=== PATIENT | male | born 1945 | race Hispanic/Latino ===

== ENCOUNTER 2021-10-15 06:18 | Observation (INO) | payer MEDICARE ==
--- NOTE | 2021-10-15 07:29 | Emergency Department Report ---
HPI - General Chief Complaint: Chest Pain Time Seen by Provider: 10/15/21 06:49 - HPI HPI: 76-year-old male with history of hypertension, DM2, and CAD s/p CABG and 7 stents is brought in by EMS complaining of left-sided chest pain and arm pain since last night. The patient states that around midnight he began to have pressure-like pain in the left side of his chest just over the breast which was very brief and then the pain moved to his left arm. He states that in the past, every time he has needed a stent it has presented exactly like this with left arm pain. That left arm pain lasted hours and he took nitro at 5 AM. While in the ambulance, the patient was given full-strength aspirin. His chest and left arm pain fully resolved while in route to the hospital. At this time he reports no symptoms. He denies any recent or associated fever/chills, headache, vision change, neck pain, back pain, cough, shortness of breath, abdominal pain, n ausea/vomiting, jaw pain, focal weakness, sensory changes, or any other complaints. He is fully vaccinated against COVID-19 and has received a booster. His vmware administrator is Dr. Cadena from [facility]. ED Past Medical Hx - Past Medical History Hx Hypertension: Yes Hx Heart Attack/AMI: Yes (7 STENT, CABG) Hx Diabetes: Yes - Surgical History Past Surgical History?: Yes Additional Surgical History: cABG - Medications Home Medications: Home Medications Medication Instructions Recorded Confirmed Last Taken Type No Known Home Medications [No 10/15/21 10/15/21 Unknown History Reported Home Medications] ED Review of Systems ROS: Stated complaint: CHEST PAIN Other details as noted in HPI Comment: All other systems reviewed and negative Constitutional: denies: chills Eyes: denies: eye pain, vision change ENT: denies: throat pain, congestion Respiratory: denies: cough, shortness of breath Cardiovascular: chest pain. denies: palpitations, edema, syncope Gastrointestinal: denies: abdominal pain, nausea, vomiting Genitourinary: denies: dysuria, frequency Musculoskeletal: denies: back pain, arthralgia Skin: denies: rash, lesions Neurological: denies: headache, weakness, numbness, paresthesias Hematological/Lymphatic: denies: easy bleeding Physical Exam - Physical Exam Vital Signs: Vital Signs 10/15/21 06:36 Temperature 98.4 F Pulse Rate 55 L Blood Pressure 140/90 [Left] Physical Exam: GENERAL: Obese male in no acute distress. HEAD: Normocephalic. No obvious signs of trauma. ENT: Moist mucous membranes. EYES: Extraocular movements are intact. Pupils are equal round and reactive to light bilaterally NECK: Supple. Full ROM is intact. Trachea is midline. LUNGS: Nonlabored breathing. Equal chest rise bilaterally. Clear to auscultation bilaterally. CARDIOVASCULAR: Bradycardic with regular rhythm. No murmurs or rubs. VASCULAR: Cap refill < 2 seconds. 2+ pitting edema of the left lower extremity, 3+ pitting edema of the right lower extremity. ABDOMEN: Abdomen is soft and nondistended. There is no significant tenderness, guarding or rebound. SKIN: Skin is warm and dry NEURO: Patient is awake, alert, and oriented. silver steward II-XII grossly intact. No focal deficits. Normal motor and sensory exam throughout. Normal speech. MUSCULOSKELETAL: No obvious deformities. No significant tenderness. Normal ROM throughout. BACK/SPINE: No midline tenderness or step-offs of the C/T/L spine. No costovertebral angle tenderness. ED Course Vital Signs 10/15/21 06:36 Temperature 98.4 F Pulse Rate 55 L Blood Pressure 140/90 [Left] ED Medical Decision Making - Lab Data Result diagrams: 10/15/21 07:22 10/15/21 07:22 - EKG Data -: EKG Interpreted by Me - EKG Data When compared to previous EKG there are: previous EKG unavailable 10/15/21 07:54 Junctional rhythm with rate of 56. Otherwise normal intervals. No significant ST segment or T wave abnormalities. - Radiology Data Radiology results: report reviewed - Medical Decision Making 76-year-old male with history of diabetes and extensive cardiac history includi ng prior CABG and 7 stent placement presents with left-sided chest and arm pain that started very early this morning and has since resolved. Patient states that this presentation is the same presentation he has experienced in the past every time he has needed a new stent placed. He is currently asymptomatic without chest pain at this time. Nonetheless, EKG shows what appears to be a junctional rhythm with rate in the 50s. No prior EKGs are available for comparison. His blood pressure is within normal limits and vital signs are otherwise stable. Nonetheless, we will perform broad work-up with a full set of labs, chest x-ray, continuous cardiac monitoring with pads in place. We will place a stat consult to cardiology. We will continue to monitor very closely. I spoke with Dr. Kauffman of interventional cardiology at 7:43 regarding the case. He reviewed the EKG and states that as long as the patient's remaining vitals are stable, he recommends treating the same as if junctional rhythm was not present on EKG. At 8 AM I spoke with Cookie, a UNIT COORDINATOR that works with [facility] and the patient's vmware administrator. She was able to review the patient's medical records and conveyed that the patient last had an EKG in April 19, 2021 which at that time showed new onset junctional rhythm. Given that the junctional rhythm seen on EKG today is not new, we will continue to monitor and work-up as per chest pain protocol. Patient's heart score is 7 Labs have resulted and reveal no significant leukocytosis or anemia. Creatinine is within normal range and there are no significant electrolyte abnormalities. Lipase is very mildly elevated at 103. Troponin is negative. BMP is within normal limits. TSH is within normal limits. Chest x-ray shows mild increased density in the left lower lobe of the lung. Given this finding I have ordered CTA of the chest to assess for evidence of pulmonary embolism versus pneumonia versus mass versus other abnormality to explain the patient's presentation On repeat assessment at 9:10 AM, the patient reports that he is just now beginning to experience some increased left-sided chest pain. I have ordered Nitropaste. Patient's chest pain resolved shortly after application of Nitropaste. CTA of the chest reveals no acute abnormalities and no evidence of pulmonary embolism. I discussed with the patient my recommendation for admission given his significant risk factors and concerning nature of his presentation as well as his elevated heart score. He will be admitted for further trending of cardiac enzymes and management as appropriate. He expressed understanding and agreement with this plan of care. I spoke with the hospitalist regarding the case and he has been accepted by Dr. Anaya Critical care attestation.: If time is entered above; I have spent that time in minutes in the direct care of this critically ill patient, excluding procedure time. ED Disposition Clinical Impression: Junctional bradycardia, Unstable angina, History of coronary artery bypass graft Disposition: ADMITTED INPATIENT Is pt being admited?: Yes Instructions: Angina, [id number] Referrals: PRIMARY CARE, [Primary Care Provider] - 3-5 Days HEART Score - HEART Score History: Highly suspicious EKG: Non-specific Age: > 65 Risk factors: > 3 risk factors or hx of atherosclerotic disease Troponin: < normal limit HEART Score: 7
[2021-10-15 07:34] LABS: Basophils # (Auto) 0.1 K/mm3 (0.0-0.1); Basophils % (Auto) 0.8 % (0.0-1.8); Eosinophils # (Auto) 0.2 K/mm3 (0.0-0.4); Eosinophils % (Auto) 2.7 % (0.0-4.3); Hematocrit 40.1 % (35.5-45.6); Lymphocytes # (Auto) 1.4 K/mm3 (1.2-5.4); Lymphocytes % (Auto) 18.7 % (13.4-35.0); Mean Corpuscular HGB Conc 32 % (32-34); Mean Corpuscular Volume 97 fl (84-94); Monocytes # (Auto) 0.5 K/mm3 (0.0-0.8); Monocytes % (Auto) 6.3 % (0.0-7.3); Platelet Count 166 K/mm3 (140-440); Red Blood Count 4.15 M/mm3 (3.65-5.03); Red Cell Distribution Width 14.8 % (13.2-15.2)
--- NOTE | 2021-10-15 07:41 | XRay Report ---
CHEST 1 VIEW 10/15/2021 6:35 AM INDICATION / CLINICAL INFORMATION: CP. COMPARISON: 01/11/2013 FINDINGS: SUPPORT DEVICES: None. HEART / MEDIASTINUM: Cardiomegaly LUNGS / PLEURA: Mild increased density and atelectasis in the left lower lung No pneumothorax. Signer Name: Gigi Serrano MD Signed: 10/15/2021 7:37 AM Workstation Name: [id number]
[2021-10-15 07:44] LABS: INR 0.98 (0.87-1.13)
[2021-10-15 07:58] LABS: Alanine Aminotransferase 22 units/L (7-56); Albumin 3.7 g/dL (3.9-5); BUN/Creatinine Ratio 17; Blood Urea Nitrogen 17 mg/dL (9-20); Calcium 8.4 mg/dL (8.4-10.2); Hemolysis Index 6
[2021-10-15] MEDS ORDERED: NITROGLYCERIN 2% OINT 1 GM TP ONE (09:10)
--- NOTE | 2021-10-15 10:12 | Cat Scan Report ---
CTA CHEST WITH CONTRAST INDICATION : Left lower lobe opacity, assess for PE OMNI 350 100ML. TECHNIQUE: Axial imaging performed through the chest, with contrast bolus timing set to maximize opa cification of the pulmonary arteries. Sagittal and coronal reformatted images. 3-plane MIP reformatte d images were obtained. All CT scans at this location are performed using CT dose reduction for ALAR A by means of automated exposure control. Omnipaque 350 100 mL of intravenous contrast administered. COMPARISON: AP chest 10/15/2021 FINDINGS: Bolus: Contrast bolus timing is adequate. PTE: No filling defect is present to suggest PTE. Mediastinum: Heart size is within normal limits with moderate three-vessel coronary artery calcifica tions. The thoracic aorta is unremarkable. No pathologic mediastinal adenopathy. Lungs: The lungs are clear with no evidence for acute infiltrate or interstitial disease. 8 mm subpl eural nodule is identified in the lateral left lower lobe. A 7 mm subpleural nodule is identified in the lateral right middle lobe. Overall these have a benign appearance. No aggressive pulmonary mass. There is no evidence for pleural effusion or pneumothorax. Mild eventration of the anterior left jacob diaphragm is noted. Bones: Degenerative changes in the spine with nothing acute. Upper abdomen: Limited images of the upper abdomen demonstrate a large right renal cyst measuring up to 10 cm. Multiple gallstones are also identified with no evidence for acute cholecystitis. IMPRESSION: No evidence for pulmonary embolus. The lungs are clear. There is eventration of the left anterior hemidiaphragm which could represent a left lower lobe opacity on recent AP chest. Bilateral pulmonary nodules as described which overall have a benign appearance. Current guidelines r ecommend follow-up in 6-12 months. Signer Name: Juno Jacobs Jr, MD Signed: 10/15/2021 10:08 AM Workstation Name: [id number]
--- NOTE | 2021-10-15 10:27 | Electrocardiograph Report ---
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
--- NOTE | 2021-10-15 17:11 | History and Physical Report ---
History of Present Illness Date of examination: 10/15/21 Date of admission: 10/15/2021 Chief complaint: Left chest pain and shoulder pain for 1 day History of present illness: 76-year-old male with history of hypertension, type 2 diabetes, coronary artery disease, s/p CABG, 7 stents comes in for left-sided chest pain and left shoulder pain since last night. Patient states that around midnight was having left-sided chest pain and shoulder pain. 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 Once he gets her out of bed she can walk slowly with the help of her walker to the restroom. His is near total care which process loss of some physical stress on both his shoulders and upper body. No shortness of breath. No diaphoresis. No orthopnea. No palpitations. - Past Medical History Hx Hypertension: Yes Hx Heart Attack/AMI: Yes (7 STENT, CABG) Hx Diabetes: Yes - Surgical History Past Surgical History?: Yes Additional Surgical History: cABG - Medications Home Medications: Home Medications Medication Instructions Recorded Confirmed Last Taken Type No Known Home Medications [No 10/15/21 10/15/21 Unknown History Reported Home Medications] Review of Systems ROS: Stated complaint: CHEST PAIN Other details as noted in HPI Comment: All other systems reviewed and negative Constitutional: denies: chills Eyes: denies: eye pain, vision change ENT: denies: throat pain, congestion Respiratory: denies: cough, shortness of breath Cardiovascular: chest pain. denies: palpitations, edema, syncope Gastrointestinal: denies: abdominal pain, nausea, vomiting Genitourinary: denies: dysuria, frequency Musculoskeletal: denies: back pain, arthralgia Skin: denies: rash, lesions Neurological: denies: headache, weakness, numbness, paresthesias Hematological/Lymphatic: denies: easy bleeding Medications and Allergies Allergies Allergy/AdvReac Type Severity Reaction Status Date / Time No Known Allergies Allergy Unverified 10/15/21 09:10 Home Medications Medication Instructions Recorded Confirmed Last Taken Type No Known Home Medications [No 10/15/21 10/15/21 Unknown History Reported Home Medications] Exam - Constitutional Vitals: Temp Pulse Resp BP Pulse Ox 98.4 F 63 16 166/86 99 10/15/21 06:36 10/15/21 15:00 10/15/21 15:00 10/15/21 15:00 10/15/21 15:00 General appearance: Present: no acute distress, well-nourished - EENT Eyes: Present: PERRL ENT: hearing intact, clear oral mucosa - Neck Neck: Present: supple, normal ROM - Respiratory Respiratory effort: normal Respiratory: bilateral: CTA - Cardiovascular Heart rate: 78 Rhythm: regular Heart Sounds: Present: S1 & S2. Absent: rub, click Details: Chest wall tenderness present and left shoulder tenderness present. - Extremities Extremities: pulses symmetrical, No edema Peripheral Pulses: within normal limits - Abdominal General gastrointestinal: Present: soft, non-tender, non-distended, normal bowel sounds Male genitourinary: Present: normal - Integumentary Integumentary: Present: clear, warm, dry - Musculoskeletal Musculoskeletal: gait normal, strength equal bilaterally - Psychiatric Psychiatric: appropriate mood/affect, intact judgment & insight - Neurologic Neurologic: CNII-XII intact, moves all extremities - Allied Health Allied health notes reviewed: nursing, case management HEART Score - HEART Score EKG: Non-specific Age: > 65 Risk factors: > 3 risk factors or hx of atherosclerotic disease Troponin: Troponin T < 0.010 ng/mL (0.00-0.029) 10/15/21 13:42 Troponin: < normal limit - Critical Actions Critical Actions: 4-6 pts:12-16.6% risk of adverse cardiac event. Should be admitted Results - Labs CBC & Chem 7: 10/16/21 05:47 10/16/21 05:47 Labs: Laboratory Last Values WBC 7.5 K/mm3 (4.5-11.0) 10/15/21 07:22 RBC 4.15 M/mm3 (3.65-5.03) 10/15/21 07:22 Hgb 13.0 gm/dl (11.8-15.2) 10/15/21 07:22 Hct 40.1 % (35.5-45.6) 10/15/21 07:22 MCV 97 fl (84-94) H 10/15/21 07:22 MCH 31 pg (28-32) 10/15/21 07:22 MCHC 32 % (32-34) 10/15/21 07: RDW 14.8 % (13.2-15.2) 10/15/21 07:22 Plt Count 166 K/mm3 (140-440) 10/15/21 07:22 Lymph % (Auto) 18.7 % (13.4-35.0) 10/15/21 07:22 Mora % (Auto) 6.3 % (0.0-7.3) 10/15/21 07: Eos % (Auto) 2.7 % (0.0-4.3) 10/15/21 07: Baso % (Auto) 0.8 % (0.0-1.8) 10/15/21 07: Lymph # (Auto) 1.4 K/mm3 (1.2-5.4) 10/15/21 07:22 Mora # (Auto) 0.5 K/mm3 (0.0-0.8) 10/15/21 07: Eos # (Auto) 0.2 K/mm3 (0.0-0.4) 10/15/21 07:22 Baso # (Auto) 0.1 K/mm3 (0.0-0.1) 10/15/21 07: Seg Neutrophils % 71.5 % (40.0-70.0) H 10/15/21 07: Seg Neutrophils # 5.3 K/mm3 (1.8-7.7) 10/15/21 07:22 PT 14.1 Sec. (12.2-14.9) 10/15/21 07: INR 0.98 (0.87-1.13) 10/15/21 07:22 APTT 28.0 Sec. (24.2-36.6) 10/15/21 07:22 Sodium 141 mmol/L (137-145) 10/15/21 07:22 Potassium 4.1 mmol/L (3.6-5.0) 10/15/21 07:22 Chloride 105.9 mmol/L (98-107) 10/15/21 07:22 Carbon Dioxide 22 mmol/L (22-30) 10/15/21 07:22 Anion Gap 17 mmol/L 10/15/21 07:22 BUN 17 mg/dL (9-20) 10/15/21 07:22 Creatinine 1.0 mg/dL (0.8-1.3) 10/15/21 07:22 Estimated GFR > 60 ml/min 10/15/21 07:22 BUN/Creatinine Ratio 17 % 10/15/21 07:22 Glucose 169 mg/dL (75-100) H 10/15/21 07:22 Calcium 8.4 mg/dL (8.4-10.2) 10/15/21 07:22 Magnesium 1.70 mg/dL (1.7-2.3) 10/15/21 07:22 Total Bilirubin 0.40 mg/dL (0.1-1.2) 10/15/21 07:22 AST 19 units/L (5-40) 10/15/21 07:22 ALT 22 units/L (7-56) 10/15/21 07:22 Alkaline Phosphatase 89 units/L (35-129) 10/15/21 07:22 Troponin T < 0.010 ng/mL (0.00-0.029) 10/15/21 13:42 NT-Pro-B Natriuret Pep 218.2 pg/mL (0-900) 10/15/21 07:22 Total Protein 6.5 g/dL (6.3-8.2) 10/15/21 07:22 Albumin 3.7 g/dL (3.9-5) L 10/15/21 07:22 Albumin/Globulin Ratio 1.3 % 10/15/21 07:22 Lipase 103 units/L (13-60) H 10/15/21 07:22 TSH 2.830 mlU/mL (0.270-4.200) 10/15/21 07:23 Short CBC 10/15/21 10/16/21 Range/Units 07:22 05:47 WBC 7.5 7.3 (4.5-11.0) K/mm3 Hgb 13.0 13.2 (11.8-15.2) gm/dl Hct 40.1 39.8 (35.5-45.6) % Plt Count 166 161 (140-440) K/mm3 BMP 10/15/21 10/16/21 07:22 05:47 Sodium 141 142 Potassium 4.1 4.0 Chloride 105.9 106.2 Carbon Dioxide 22 19 L BUN 17 17 Creatinine 1.0 0.9 Glucose 169 H 149 H Calcium 8.4 7.7 L Cardiac Enzymes 10/15/21 10/15/21 10/15/21 Range/Units 07:22 10:22 13:42 Troponin T < 0.010 < 0.010 < 0.010 (0.00-0.029) ng/mL 10/15/21 10/15/21 Range/Units 17:50 22:44 Troponin T < 0.010 0.014 (0.00-0.029) ng/mL Liver Function 10/15/21 10/16/21 Range/Units 07:22 05:47 Total Bilirubin 0.40 0.40 (0.1-1.2) mg/dL AST 19 21 (5-40) units/L ALT 22 21 (7-56) units/L Alkaline Phosphatase 89 84 (35-129) units/L Albumin 3.7 L 3.2 L (3.9-5) g/dL - Imaging and Cardiology EKG: report reviewed (Normal sinus rhythm, no acute ST-T wave changes) Chest x-ray: report reviewed (No acute findings) Imaging and Cardiology: Chest x-ray with mild increased density and atelectasis in the left lower lobe. No pneumothorax. Chest CTA No evidence of pulmonary embolism Lungs are There is a ventilation of the left anterior hemidiaphragm which could represent a left lower lobe opacity on recent AP chest Bilateral pulmonary nodules as described with overall benign. Appearance. Assessment and Plan Advance Directives: Yes (Full code) VTE prophylaxis?: Chemical - Patient Problems (1) ACS (acute coronary syndrome) Current Visit: Yes Status: Acute Plan to address problem: Cardiac ischemia unlikely Patient has extensive coronary artery disease with multiple stents and CABG Patient's chest pain appears to be musculoskeletal because of lifting his on a regular basis Chest wall tenderness present. Serial troponins. 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 There is chest wall tenderness and costochondral tenderness. Patient lives with his and helps her to the restroom and other ADLs. (3) Hypertension Current Visit: Yes Status: Chronic Qualifiers: Hypertension type: primary hypertension Qualified Code(s): I10 - Essential (primary) hypertension Plan to address problem: Continue antihypertensives and adjust medications No reconciliation medications (4) T2DM (type 2 diabetes mellitus) Current Visit: Yes Status: Chronic Qualifiers: Diabetes mellitus detention insulin use: unspecified terminologist insulin use status Plan to address problem: Coverage for now and check hemoglobin A1c. (5) Hypocalcemia Current Visit: Yes Status: Acute Plan to address problem: Supplemented (6) DVT prophylaxis Current Visit: Yes Status: Acute Plan to address problem: On anticoagulation GI prophylaxis (7) Advance care planning Current Visit: Yes Status: Acute Plan to address problem: Disease education conducted, care plan discussed, diagnosis discussed, prognosis discussed. Patient is full code Patient acknowledges understanding and agreement with care plan. +30 minutes. (8) Discharge planning issues Current Visit: Yes Status: Acute Plan to address problem: Patient may be discharged if troponins are negative Stress test as outpatient with [facility]-- consulted
[2021-10-15] MEDS ORDERED: ONDANSETRON 4 MG/2 ML INJ IV PRN (17:30)
[2021-10-15] MEDS ORDERED: oxyCODONE /ACETAMINOPHEN 5-325MG TAB PO PRN (17:30)
[2021-10-15] MEDS ORDERED: ACETAMINOPHEN 325 MG TAB PO PRN (17:30)
[2021-10-15] MEDS ORDERED: SODIUM CHLORIDE 0.9% 1000 ML 1,000 ML IV SCH (17:30)
[2021-10-15] MEDS: HEPARIN 5,000 UNIT/1 ML VIAL SUB-Q SCH (17:51)
[2021-10-16 06:18] LABS: Basophils # (Auto) 0.1 K/mm3 (0.0-0.1); Eosinophils # (Auto) 0.2 K/mm3 (0.0-0.4); Eosinophils % (Auto) 2.3 % (0.0-4.3); Hematocrit 39.8 % (35.5-45.6); Hemoglobin 13.2 gm/dl (11.8-15.2); Lymphocytes # (Auto) 1.4 K/mm3 (1.2-5.4); Lymphocytes % (Auto) 19.5 % (13.4-35.0); Mean Corpuscular HGB Conc 33 % (32-34); Mean Corpuscular Volume 97 fl (84-94); Monocytes # (Auto) 0.5 K/mm3 (0.0-0.8); Monocytes % (Auto) 7.4 % (0.0-7.3); Platelet Count 161 K/mm3 (140-440); Red Blood Count 4.12 M/mm3 (3.65-5.03); Red Cell Distribution Width 14.8 % (13.2-15.2)
[2021-10-16 06:37] LABS: Alanine Aminotransferase 21 units/L (7-56); Albumin 3.2 g/dL (3.9-5); BUN/Creatinine Ratio 19; Blood Urea Nitrogen 17 mg/dL (9-20); Calcium 7.7 mg/dL (8.4-10.2)
[2021-10-16 06:38] LABS: Hemolysis Index 69
[2021-10-16] MEDS ORDERED: MELOXICAM 7.5 MG TAB PO SCH (10:00)
[2021-10-16] MEDS ORDERED: CALCIUM CARB/VIT D3/MINERALS 600 MG/800 UNITS TAB PO SCH (10:00)
[2021-10-16] MEDS: HEPARIN 5,000 UNIT/1 ML VIAL SUB-Q SCH (10:27)
--- NOTE | 2021-10-16 11:26 | Discharge Summary ---
Providers - Providers Date of Admission: 10/15/21 16:27 Date of discharge: 10/16/21 Attending physician: JESSICA CAZARES MD Primary care physician: [facility] Hospitalization Reason for admission: Acute chest pain Condition: Stable Pertinent studies: Reviewed. Procedures: None. Hospital course: The patient is a 76-year-old female with past medical history of hypertension, noninsulin-dependent type 2 diabetes mellitus, coronary artery disease status post CABG and PCI x7, and morbid obesity who presented with left-sided chest pain and left shoulder pain that started approximately 1 night prior to presentation. The patient admits that he had been having the pain for approximately 1 day. 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 His is approximately 200 pounds and short in stature. In the ED the patient was administered aspirin 325 mg and Nitropaste with alleviation of symptoms. Troponins were trended and they were found to be negative x4. The patient does follow with an outpatient desktop support technician. With the patient having negative troponins and his pain likely being secondary to musculoskeletal etiology (constantly lifting his and transporting her), the decision was made to discharge the patient home. The patient will follow up with his outpatient desktop support technician and undergo an outpatient stress test. The patient expresses understanding. The patient is medically cleared for discharge. Disposition: 01 HOME / SELF CARE / HOMELESS Final Discharge Diagnosis (Prints w/discharge instructions): Musculoskeletal pain, hypertension, [id number] type 2 diabetes mellitus, morbid obesity, and coronary artery disease status post CABG and PCI x7 Time spent for discharge: 45 min Core Measure Documentation - Palliative Care Palliative Care/ Comfort Measures: Not Applicable - Core Measures Any of the following diagnoses?: none Exam - Constitutional Vitals: Temp Pulse Resp BP Pulse Ox 97.6 F 56 L 19 143/73 97 10/16/21 03:19 10/16/21 03:19 10/16/21 03:19 10/16/21 03:19 10/16/21 08:35 General appearance: Present: no acute distress, well-nourished, obese - EENT Eyes: Present: PERRL, EOM intact ENT: hearing intact, clear oral mucosa, dentition normal - Neck Neck: Present: supple, normal ROM - Respiratory Respiratory effort: normal Respiratory: bilateral: CTA - Cardiovascular Rhythm: regular Heart Sounds: Present: S1 & S2 - Extremities Extremities: no ischemia, pulses intact, pulses symmetrical, No edema, normal temperature, normal color, Full ROM Peripheral Pulses: within normal limits - Abdominal General gastrointestinal: Present: soft, non-tender, non-distended, normal bowel sounds Male genitourinary: Present: deferred - Rectal Rectal Exam: deferred - Integumentary Integumentary: Present: clear, warm, dry - Musculoskeletal Musculoskeletal: strength equal bilaterally - Psychiatric Psychiatric: appropriate mood/affect, intact judgment & insight, memory intact, cooperative - Neurologic Neurologic: CNII-XII intact, moves all extremities - Allied Health Allied health notes reviewed: nursing Plan Activity: no restrictions Diet: low fat, low salt Additional Instructions: The patient is a 76-year-old female with past medical history of hypertension, noninsulin-dependent type 2 diabetes mellitus, coronary artery disease status post CABG and PCI x7, and morbid obesity who presented with left-sided chest pain and left shoulder pain that started approximately 1 night prior to presentation. The patient admits that he had been having the pain for approximately 1 day. 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 His is approximately 200 pounds and short in stature. In the ED the patient was administered aspirin 325 mg and Nitropaste with alleviation of symptoms. Troponins were trended and they were found to be negative x4. The patient does follow with an outpatient desktop support technician. With the patient having negative troponins and his pain likely being secondary to musculoskeletal etiology (constantly lifting his and transporting her), the decision was made to discharge the patient home. The patient will follow up with his outpatient desktop support technician and undergo an outpatient stress test. The patient expresses understanding. The patient is medically cleared for discharge. Care Plan Goals: Patient is medically cleared for discharge. Assessment: The patient is a 76-year-old female with past medical history of hypertension, noninsulin-dependent type 2 diabetes mellitus, coronary artery disease status post CABG and PCI x7, and morbid obesity who presented with left-sided chest pain and left shoulder pain that started approximately 1 night prior to presentation. The patient admits that he had been having the pain for approximately 1 day. 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 His is approximately 200 pounds and short in stature. In the ED the patient was administered aspirin 325 mg and Nitropaste with alleviation of symptoms. Troponins were trended and they were found to be negative x4. The patient does follow with an outpatient desktop support technician. With the patient having negative troponins and his pain likely being secondary to musculoskeletal etiology (constantly lifting his and transporting her), the decision was made to discharge the patient home. The patient will follow up with his outpatient desktop support technician and undergo an outpatient stress test. The patient expresses understanding. The patient is medically cleared for discharge. Follow up with: PRIMARY CAREMD [Primary Care Provider] - 3-5 Days
[2021-10-16 18:19] VITALS: BP 169/83
== END 2021-10-16 12:20 | disposition home or self-care (01) ==
LOC: ED 06:18 → 4A 16:27
PROVIDERS: ADMIT Internal Medicine; ATTEND Student in an Organized Health Care Education/Training Program
DX: I24.9 Acute ischemic heart disease, unspecified (principal); M94.0 Chondrocostal junction syndrome [Tietze]; I10 Essential (primary) hypertension; I25.10 Atherosclerotic heart disease of native coronary artery without angina pectoris; E11.9 Type 2 diabetes mellitus without complications; E66.01 Morbid (severe) obesity due to excess calories; E83.51 Hypocalcemia; R00.1 Bradycardia, unspecified; Z95.1 Presence of aortocoronary bypass graft; Z68.1 Body mass index [BMI] 19.9 or less, adult
CPT/HCPCS: 36415; 71045; 71275; 80053; 83690; 83735; 83880; 84443; 84484; 85025; 85610; 85730; 93005; 93010; 96361; 96372; 96374; 99285; G0378; J1644; J3490; J7030; Q9967; Q0162